=== PATIENT | female | born 1985 | race African-American/Black ===

== ENCOUNTER 2019-02-01 00:31 | Emergency (ER) | payer MEDICAID, OTHER ==
[~2019-02-01] VITALS: Ht 172.7 cm; Wt 59.7 kg
[2019-02-01 00:59] VITALS: BP 153/86
== END 2019-02-01 07:25 | disposition left against medical advice (07) ==
LOC: ER 00:31
DX: Z53.21 Procedure and treatment not carried out due to patient leaving prior to being seen by health care provider (principal)
CPT/HCPCS: 81025

== ENCOUNTER 2019-02-03 15:59 | Emergency (ER) | payer MEDICAID ==
[~2019-02-03] VITALS: Ht 165.1 cm; Wt 60.0 kg
[2019-02-03] MEDS ORDERED: KETOROLAC 60MG/2ML VIAL IM STA (18:34)
[2019-02-03 18:55] VITALS: BP 104/86
== END 2019-02-03 20:13 | disposition home or self-care (01) ==
LOC: ER 17:45
DX: M54.5 Low back pain (principal); V49.40XA Driver injured in collision with unspecified motor vehicles in traffic accident, initial encounter; Y93.89 Activity, other specified; Y92.410 Unspecified street and highway as the place of occurrence of the external cause
CPT/HCPCS: 72100; 81025; 96372; 99283; J1885

== ENCOUNTER 2021-02-01 21:30 | Emergency (ER) | payer BC, MEDICAID ==
[~2021-02-01] VITALS: Ht 172.7 cm; Wt 56.2 kg
[2021-02-01] MEDS ORDERED: ACETAMINOPHEN 325MG TABLET PO PRN (22:00)
[2021-02-01 22:44] LABS: CLARITY URINE TURBID (CLEAR); COLOR URINE YELLOW (YELLOW); KETONES URINE TRACE (NEGATIVE); LEUKOCYTE ESTERASE URINE NEGATIVE (NEGATIVE); NITRITE URINE NEGATIVE (NEGATIVE); OCCULT BLOOD URINE NEGATIVE (NEGATIVE); PROTEIN URINE NEGATIVE (NEGATIVE); SPECIFIC GRAVITY URINE 1.024 (1.005-1.030)
[2021-02-01 23:37] LABS: BASOPHILS % 0.9 % (0.0-2.0); EOSINOPHILS % 0.6 % (0.0-5.0); HEMATOCRIT. 33.6 % (36.0-48.0); HEMOGLOBIN. 11.3 g/dL (12.0-16.0); MEAN CORPUSCULAR HEMOGLOBIN 32.1 pg (28.0-32.0); MEAN CORPUSCULAR VOLUME 95.7 fL (81.0-99.0); MEAN PLATELET VOLUME 7.9 fl (7.4-10.4); MONOCYTES % 5.6 % (2.0-8.0); NEUTROPHILS % 72.9 % (40.0-76.0); PLATELET 310 x1000/uL (130-400); RED BLOOD CELL COUNT 3.51 mill/uL (4.2-5.4); RED CELL DISTRIBUTION WIDTH 12.6 % (11.6-14.6)
[2021-02-01 23:45] LABS: CHLORIDE 105 mEq/L (98-107)
[2021-02-02 00:09] LABS: B-HCG QUANTITATIVE 56911 mIU/mL (<3)
[2021-02-02 01:18] VITALS: BP 119/71
== END 2021-02-02 01:20 | disposition home or self-care (01) ==
LOC: ER 21:30
DX: O99.891 Other specified diseases and conditions complicating pregnancy (principal); S39.81XA Other specified injuries of abdomen, initial encounter; S49.81XA Other specified injuries of right shoulder and upper arm, initial encounter; Z3A.12 12 weeks gestation of pregnancy; O09.521 Supervision of elderly multigravida, first trimester; V49.69XA Unspecified car occupant injured in collision with other motor vehicles in traffic accident, initial encounter; Y93.89 Activity, other specified; Y92.488 Other paved roadways as the place of occurrence of the external cause
CPT/HCPCS: 36415; 73030; 76801; 80053; 81003; 81025; 84702; 85025; 86850; 86900; 93005; 99285

== ENCOUNTER 2023-01-21 20:45 | Emergency (ER) | payer MEDICAID ==
[~2023-01-21] VITALS: Ht 172.7 cm; Wt 57.0 kg
[2023-01-21] MEDS ORDERED: MAGNESIUM/ALUMINUM HYDROXIDE/SIMETHICONE 30ML UDC PO STA (21:26)
[2023-01-21] MEDS ORDERED: ONDANSETRON HCL 4MG/2ML INJ IV STA (21:26)
[2023-01-21] MEDS ORDERED: SODIUM CHLORIDE 0.9% 1,000 ML IV ONE (21:30)
[2023-01-21 22:41] LABS: CHLORIDE 110 mEq/L (98-107)
[2023-01-21 22:48] LABS: CLARITY URINE CLEAR (CLEAR); COLOR URINE YELLOW (YELLOW); KETONES URINE TRACE (NEGATIVE); LEUKOCYTE ESTERASE URINE NEGATIVE (NEGATIVE); NITRITE URINE NEGATIVE (NEGATIVE); OCCULT BLOOD URINE NEGATIVE (NEGATIVE); PH URINE 7.5 (4.5-8.0); PROTEIN URINE NEGATIVE (NEGATIVE); SPECIFIC GRAVITY URINE 1.007 (1.005-1.030); UROBILINOGEN URINE 0.2 E.U./dL (0.2-1.0)
[2023-01-21 22:51] LABS: INR 1.1; PROTHROMBIN TIME 11.7 sec (9.6-11.0)
[2023-01-21 22:55] LABS: BASOPHILS % 0.6 % (0.0-2.0); EOSINOPHILS % 0.7 % (0.0-5.0); HEMOGLOBIN. 12.4 g/dL (12.0-16.0); LYMPHOCYTES % 33.1 % (20.0-50.0); MEAN CORPUSCULAR HEMOGLOBIN 29.9 pg (28.0-32.0); MEAN CORPUSCULAR VOLUME 91.7 fL (81.0-99.0); MEAN PLATELET VOLUME 9.9 fl (7.4-10.4); MONOCYTES % 7.3 % (2.0-8.0); NEUTROPHILS % 58.3 % (40.0-76.0); PLATELET 273 x1000/uL (130-400); RED BLOOD CELL COUNT 4.15 mill/uL (4.2-5.4); RED CELL DISTRIBUTION WIDTH 12.1 % (11.6-14.6)
[2023-01-21 23:03] LABS: *AMPHETAMINES SCREEN URINE NEGATIVE (NEGATIVE); *BARBITURATES SCREEN URINE NEGATIVE (NEGATIVE); *BENZODIAZEPINES SCREEN URINE NEGATIVE (NEGATIVE); *COCAINE SCREEN URINE NEGATIVE (NEGATIVE); METHADONE URINE SCREEN NEGATIVE (NEGATIVE); OPIATES URINE SCREEN NEGATIVE (NEGATIVE); PHENCYCLIDINE URINE SCREEN NEGATIVE (NEGATIVE)
[2023-01-21 23:07] LABS: CANNABINOID URINE SCREEN PRESUMTIVE POSITIVE (NEGATIVE); HCG SCREEN NEGATIVE
[2023-01-21] MEDS ORDERED: DIPH25CA83 MT (23:17)
[2023-01-21] MEDS ORDERED: ONDA4TAB50 MT (23:17)
[2023-01-22 00:17] VITALS: BP 121/84
== END 2023-01-22 00:19 | disposition home or self-care (01) ==
LOC: ER 20:45
DX: R11.0 Nausea (principal); R53.83 Other fatigue; R06.02 Shortness of breath; G47.00 Insomnia, unspecified; R20.2 Paresthesia of skin
CPT/HCPCS: 36415; 71045; 76705; 80053; 80305; 81003; 83690; 83735; 84703; 85025; 85610; 93005; 96361; 96374; 99285; J2405; J7030; Z7610